=== PATIENT | female | born 1965 ===

== ENCOUNTER 2018-02-01 10:42 | Outpatient (CLI) | payer OTHER | END 2018-02-01 15:58 | disposition home or self-care (01) | LOC: MRI 10:42 | DX: G54.3 Thoracic root disorders, not elsewhere classified (principal) | CPT/HCPCS: 72141 ==

== ENCOUNTER 2019-04-04 11:10 | Outpatient (CLI) | payer OTHER | END 2019-04-04 11:18 | disposition home or self-care (01) | LOC: MAMO-SONO 11:10 | DX: N64.4 Mastodynia (principal); Z12.31 Encounter for screening mammogram for malignant neoplasm of breast ==

== ENCOUNTER → 2022-03-27 | Outpatient (CLI) | payer OTHER | END | disposition home or self-care (01) | LOC: SONOGRAMA 08:25 | PROVIDERS: ATTEND Neurological Surgery | DX: K90.3 Pancreatic steatorrhea (principal) ==

== ENCOUNTER → 2022-12-23 | Outpatient (CLI) | payer OTHER | END | disposition home or self-care (01) | LOC: MAMO-SONO 10:38 | PROVIDERS: ATTEND Obstetrics & Gynecology | DX: N64.4 Mastodynia (principal); N83.201 Unspecified ovarian cyst, right side ==

== ENCOUNTER → 2025-08-18 | Outpatient (CLI) | payer OTHER | END | disposition home or self-care (01) | LOC: MAMO-SONO 10:36 | PROVIDERS: ATTEND Neurological Surgery | DX: N64.4 Mastodynia (principal); Z12.31 Encounter for screening mammogram for malignant neoplasm of breast; N83.8 Other noninflammatory disorders of ovary, fallopian tube and broad ligament ==